=== PATIENT | female | born 1985 | race Caucasian/White ===

== ENCOUNTER 2016-06-07 02:46 | Inpatient (IN) | payer OTHER ==
[2016-06-07 03:45] VITALS: BP 137/74
[2016-06-07 15:30] VITALS: BP 151/67
[2016-06-07 15:45] VITALS: BP 150/60
[2016-06-07 16:00] VITALS: BP 135/63
[2016-06-07 16:15] VITALS: BP 138/64
[2016-06-07 16:30] VITALS: BP 120/58
[2016-06-08] VITALS: BP 132/68
[2016-06-08 04:00] VITALS: BP 100/58
[2016-06-08 08:03] VITALS: BP 117/70
--- NOTE | 2016-06-08 09:19 | Provider's Discharge Care Plan ---
Problem, Goal, Plan Problem List 1. normal course Goals: Improve function Instructions: Follow up as directed
--- NOTE | 2016-06-08 09:19 | Provider's Discharge Care Plan ---
Problem, Goal, Plan Problem List 1. normal course Goals: Improve function Instructions: Follow up as directed
[2016-06-08] MEDS ORDERED: VICODIN EQUIVAL1 TAB PO (09:20)
[2016-06-08 15:45] VITALS: BP 109/69
== END 2016-06-08 18:35 | disposition home or self-care (01) | DRG 988 ==
LOC: OBC SRH 02:46 → OB SRH 02:48
PROVIDERS: ADMIT Obstetrics & Gynecology
PROC: 10D07Z6 Extraction of Products of Conception, Vacuum, Via Natural or Artificial Opening (ICD-10-PCS; principal; 2016-06-07)
PROC: 0DQR0ZZ Repair Anal Sphincter, Open Approach (ICD-10-PCS; principal; 2016-06-07)
DX: O75.2 Pyrexia during labor, not elsewhere classified (principal); Z37.0 Single live birth; O70.20 Third degree perineal laceration during delivery, unspecified; O90.81 Anemia of the puerperium; D64.9 Anemia, unspecified; O99.824 Streptococcus B carrier state complicating childbirth; Z3A.39 39 weeks gestation of pregnancy
CPT/HCPCS: 40011; 82997; 83411; 84038; 84043; 90001; 90004; 90074; 90155; 91004; 95059